=== PATIENT | female | born 1955 ===

== ENCOUNTER 2024-06-29 06:21 | Day surgery (SDC) | payer OTHER, SELFPAY ==
[2024-06-23 17:52] LABS: % Basophils 0.8 % (0-2); % Eosinophils 0.9 % (0-6); % Immature Granulocytes 0.3 % (0-0.5); % Lymphocytes 32.2 % (20.5-51.1); % Monocytes 6.9 % (1.7-9.3); % Neutrophils 58.9 % (42.2-75.2); Absolute Basophils 0.1 10^3/uL (0-0.2); Absolute Eosinophils 0.1 10^3/uL (0-0.7); Absolute Lymphocytes 3.4 10^3/uL (1.2-3.4); Absolute Monocytes 0.7 10^3/uL (0.1-0.6); Absolute Neutrophils 6.1 10^3/uL (1.4-6.5); Hematocrit 41.5 % (37.0-47.0); Hemoglobin 14.4 g/dL (12.0-16.0); Mean Corp Hgb Conc. 34.7 g/dL (33.0-37.0); Mean Corpuscular Hgb 33.1 pg (27.0-31.0); Mean Corpuscular Volume 95.4 fL (81.0-99.0); Mean Platelet Volume 12.1 fL (7.4-10.4); Nucleated Red Blood Cells % 0 %; Platelet Count 210 10^3/uL (130-400); Red Blood Cell Count 4.35 10^6/uL (4.20-5.40); Red Cell Dist. Width 12.5 % (11.5-14.5); White Blood Cell Count 10.4 10^3/uL (4.8-10.8)
[2024-06-29] VITALS (8 sets, daily range): BP systolic 133–153; BP diastolic 73–96; BMI 22.9
[2024-06-29] MEDS: NORMOSOL-R 1000 IV (11:43)
== END 2024-06-29 16:59 | disposition home or self-care (01) ==
LOC: SDS 06:21
PROVIDERS: ATTENDING PHYSICIAN Otolaryngology; FAMILY PHYSICIAN Family Medicine
DX: H65.21 Chronic serous otitis media, right ear (principal); J33.0 Polyp of nasal cavity; H91.91 Unspecified hearing loss, right ear; Z87.891 Personal history of nicotine dependence
CPT/HCPCS: 69436; 31237; 88305; 36415; 85025; 88341; 88342; 88365; 93005; L8699